=== PATIENT | female | born 1985 | race Caucasian/White ===

== ENCOUNTER 2016-08-26 09:29 | Inpatient (IN) | payer BC ==
[~2016-08-26 09:29] MED LIST: IBUPROFEN600 MG PO; OXYCODONE/APAP PO; PRENATAL VITAMI PO
[2016-08-26 10:12] LABS: URINE BILIRUBIN NEGATIVE (NEG); URINE BLOOD LARGE (NEG); URINE GLUCOSE (UA) NEGATIVE (NEG); URINE KETONE NEGATIVE (NEG); URINE LEUKOCYTE ESTERASE POSITIVE (NEG); URINE NITRITE NEGATIVE (NEG)
[2016-08-26 10:16] LABS: URINE APPEARANCE CLOUDY; URINE COLOR YELLOW; URINE SPECIFIC GRAVITY 1.022 (1.003-1.030)
[2016-08-26 10:22] LABS: URINE AMORPHOUS 1+; URINE BACTERIA 2+; URINE EPITHELIAL CELLS 15-20 /[HPF] (0-10); URINE PROT SULFOSALICYLIC ACID TRACE (NEG); URINE RBC 40-50 /[HPF] (0-5); URINE WBC 20-30 /[HPF] (0-5)
[2016-08-26 10:58] LABS: BASO % 0.2 % (0-2); EOS % 0.8 % (0-7); EOSINOPHIL ABSOLUTE COUNT 0.1 tho/cmm (0.0-0.7); HCT-HEMATOCRIT 40.8 % (34.0-49.0); HGB-HEMOGLOBIN 13.7 gm/dl (12.0-15.5); IMMATURE GRANULOCYTES ABSOLUTE 0.01 tho/cmm (0-0.03); IMMATURE GRANULOCYTES PERCENT 0.1 % (0-0.3); LYMPH % 25.6 % (20-45); LYMPH ABSOLUTE COUNT 2.4 tho/cmm (0.8-4.5); MCH (MEAN CORPUSCULAR HGB) 29.5 pg (28.0-32.0); MCHC MEAN CORPUSCULAR HGB CONC 33.6 % (32.0-36.0); MCV (MEAN CELL VOLUME) 87.9 fl (82.0-96.0); MEAN PLATELET VOLUME 10.6 cmc (9.4-12.4); MONO % 6.2 % (0-12); MONOCYTE ABSOLUTE COUNT 0.6 tho/cmm (0.0-1.2); NEUTROPHIL ABSOLUTE COUNT 6.3 tho/cmm (1.6-8.0); NEUTROPHIL-AUTOMATED 6.3 tho/cmm (1.6-8.0); NEUTROPHILS % 67.1 % (40-80); PLATELET COUNT 422 tho/cmm (150-450); RED BLOOD COUNT 4.64 mil/cmm (4.00-5.20); RED CELL DISTRIBUTION WIDTH 13.6 % (12.4-16.4); WHITE BLOOD COUNT 9.5 tho/cmm (4.0-10.0)
[2016-08-26 11:14] LABS: ANION GAP 15 mmol/L (0-20); BLOOD UREA NITROGEN 14 mg/dl (6-24); CALCIUM 9.1 mg/dl (8.5-10.5); CARBON DIOXIDE-VENOUS 24 mmol/L (22-32); CHLORIDE 107 mmol/l (96-110); GLUCOSE 82 mg/dL (70-110); POTASSIUM 3.8 mmol/L (3.7-5.1); SODIUM 142 mmol/L (135-145); eGFR VALUE FOR BLACK >60 mL/Min
[2016-08-27 07:23] LABS: ANION GAP 12 mmol/L (0-20); BLOOD UREA NITROGEN 12 mg/dl (6-24); CALCIUM 7.9 mg/dl (8.5-10.5); CARBON DIOXIDE-VENOUS 22 mmol/L (22-32); CHLORIDE 113 mmol/l (96-110); GLUCOSE 96 mg/dL (70-110); SODIUM 143 mmol/L (135-145); eGFR VALUE FOR BLACK >60 mL/Min
[2016-08-27] MEDS ORDERED: FLOMAX0.4 M1 PO (17:56)
[2016-08-27] MEDS ORDERED: NORCO 5-325 TA1 EACH PO (17:57)
[2016-08-27] MEDS ORDERED: CIPRO250 M2 PO (17:59)
== END 2016-08-27 18:49 | DRG 669 ==
LOC: EDMED 09:29 → EMR2 14:26 → 5WE 16:29 → ORW 08-27 14:09 → PACU 08-27 15:14 → 5WE 08-27 15:35
PROVIDERS: Emergency Medicine; Hospitalist; ADMIT Family Medicine
PROC: 05HF33Z Insertion of Infusion Device into Left Cephalic Vein, Percutaneous Approach (ICD-10-PCS; principal; 2016-08-27)
PROC: B54NZZA Ultrasonography of Left Upper Extremity Veins, Guidance (ICD-10-PCS; principal; 2016-08-27)
PROC: 0TC78ZZ Extirpation of Matter from Left Ureter, Via Natural or Artificial Opening Endoscopic (ICD-10-PCS; principal; 2016-08-27)
PROC: 0T778DZ Dilation of Left Ureter with Intraluminal Device, Via Natural or Artificial Opening Endoscopic (ICD-10-PCS; principal; 2016-08-27)
PROC: BT1F1ZZ Fluoroscopy of Left Kidney, Ureter and Bladder using Low Osmolar Contrast (ICD-10-PCS; principal; 2016-08-27)
DX: N13.2 Hydronephrosis with renal and ureteral calculous obstruction (principal); N13.9 Obstructive and reflux uropathy, unspecified; N12 Tubulo-interstitial nephritis, not specified as acute or chronic; Z23 Encounter for immunization
CPT/HCPCS: C1751; C1769; C2617; G0008; J0696; J1170; J1885; J1956; J2405; J7030; Q9967